=== PATIENT | female | born 1990 | race Two or more races ===

== ENCOUNTER → 2023-10-22 | Outpatient (CLI) | payer OTHER | END | disposition home or self-care (01) | LOC: PRENATAL 08:15 | PROVIDERS: ATTEND Obstetrics & Gynecology Maternal & Fetal Medicine | DX: O36.80X0 Pregnancy with inconclusive fetal viability, not applicable or unspecified (principal); Z36.82 Encounter for antenatal screening for nuchal translucency; Z36.9 Encounter for antenatal screening, unspecified; O34.40 Maternal care for other abnormalities of cervix, unspecified trimester; O34.30 Maternal care for cervical incompetence, unspecified trimester; Z3A.11 11 weeks gestation of pregnancy ==

== ENCOUNTER 2023-11-04 07:26 | Day surgery (SDC) | payer OTHER ==
[2023-10-26 09:34] LABS: HEMATOCRIT 39.9 % (36.0-45.00); HEMOGLOBIN 13.5 g/dL (12.0-15.00); MEAN CELL VOLUME 86.4 fL (80.00-100.00); MEAN CORPUSCULAR HEMOGLOBIN 29.2 pg (27.00-32.0); MEAN CORPUSCULAR HGB CONC 33.8 g/dl (32.0-36.0); PLATELET COUNT 207 K/uL (150-450); RED BLOOD COUNT 4.62 M/uL (4.00-6.00); RED CELL DISTRIBUTION WIDTH 14.2 % (11.5-14.5)
[2023-10-26 09:59] LABS: INR 0.98; PARTIAL THROMBOPLASTIN TIME 26.7 SECONDS (22.0-34.0); PROTHROMBIN TIME 10.3 SECONDS (9.0-11.5)
[~2023-11-04 07:26] MED LIST: PRENATABS RX T1 EACH PO
[2023-11-04] MEDS ORDERED: CEPHALEXIN500 MG PO (10:32)
== END 2023-11-04 17:15 | disposition home or self-care (01) ==
LOC: CIR.AMB 07:26
PROVIDERS: ATTEND Obstetrics & Gynecology Maternal & Fetal Medicine
DX: O34.31 Maternal care for cervical incompetence, first trimester (principal); Z3A.12 12 weeks gestation of pregnancy; Z20.822 Contact with and (suspected) exposure to COVID-19; Z88.6 Allergy status to analgesic agent; Z88.1 Allergy status to other antibiotic agents

== ENCOUNTER 2023-11-19 10:57 | Outpatient (CLI) | payer OTHER ==
[~2023-11-19 10:57] MED LIST changes: +CEPHALEXIN500 MG PO
== END 2023-11-19 10:58 | disposition home or self-care (01) ==
LOC: PRENATAL 10:57
PROVIDERS: ATTEND Obstetrics & Gynecology Maternal & Fetal Medicine
DX: O26.849 Uterine size-date discrepancy, unspecified trimester (principal); O34.40 Maternal care for other abnormalities of cervix, unspecified trimester; O34.30 Maternal care for cervical incompetence, unspecified trimester; Z3A.15 15 weeks gestation of pregnancy

== ENCOUNTER 2023-12-21 08:11 | Outpatient (CLI) | payer OTHER | END 2023-12-21 08:12 | disposition home or self-care (01) | LOC: PRENATAL 08:11 | PROVIDERS: ATTEND Obstetrics & Gynecology Maternal & Fetal Medicine | DX: O35.3XX0 Maternal care for (suspected) damage to fetus from viral disease in mother, not applicable or unspecified (principal); O44.00 Complete placenta previa NOS or without hemorrhage, unspecified trimester; O34.40 Maternal care for other abnormalities of cervix, unspecified trimester; O34.30 Maternal care for cervical incompetence, unspecified trimester; Z3A.20 20 weeks gestation of pregnancy ==

== ENCOUNTER 2024-02-15 08:12 | Outpatient (CLI) | payer OTHER | END 2024-02-15 08:14 | disposition home or self-care (01) | LOC: PRENATAL 08:12 | PROVIDERS: ATTEND Obstetrics & Gynecology Maternal & Fetal Medicine | DX: O26.849 Uterine size-date discrepancy, unspecified trimester (principal); O34.40 Maternal care for other abnormalities of cervix, unspecified trimester; O34.30 Maternal care for cervical incompetence, unspecified trimester; Z3A.28 28 weeks gestation of pregnancy ==

== ENCOUNTER 2025-10-09 10:39 | Outpatient (CLI) | payer OTHER | END 2025-10-09 10:40 | disposition home or self-care (01) | LOC: PRENATAL 10:39 | PROVIDERS: ATTEND Obstetrics & Gynecology Maternal & Fetal Medicine | DX: O36.80X0 Pregnancy with inconclusive fetal viability, not applicable or unspecified (principal); Z36.82 Encounter for antenatal screening for nuchal translucency; Z14.8 Genetic carrier of other disease; O34.41 Maternal care for other abnormalities of cervix, first trimester; O34.31 Maternal care for cervical incompetence, first trimester; O98.911 Unspecified maternal infectious and parasitic disease complicating pregnancy, first trimester; Z3A.14 14 weeks gestation of pregnancy ==

== ENCOUNTER 2025-10-30 08:00 | Day surgery (SDC) | payer OTHER ==
[2025-10-18 15:21] LABS: BASO % 0.3 % (0.1-1.2); EOS # 0.12 (0.04-0.54); EOS % 0.8 % (0.7-7.0); LYMPH # 2.54 (1.18-3.74); LYMPH % 16.0 % (19.3-53.1); MEAN PLATELET VOLUME 12.30 fl (9.4-12.4); MONO # 0.89 (0.24-0.82); MONO % 5.6 % (4.7-12.5); NEUT # 12.19 (1.56-6.13); NEUT % 76.7 % (34.0-71.1); RED CELL DISTRIBUTION WIDTH 13.7 % (11.6-14.4)
[2025-10-18 15:29] LABS: URINE APPEARANCE Clear; URINE BILIRRUBIN Negative (NEGATIVE); URINE BLOOD Negative; URINE COLOR Yellow; URINE GLUCOSE Negative (NEGATIVE); URINE LEUKOCYTE Trace; URINE NITRATE Negative; URINE PROTEIN Negative (NEGATIVE); URINE UROBILINOGEN 0.2 E.U./dl
[2025-10-18 15:32] LABS: URINE BACTERIA 33.1 uL (0.0-1933); URINE EPITHELIAL CELLS 3.1 uL (0.0-38.8)
[2025-10-18 15:33] LABS: URINE CAST 0.00 uL (0.0-1.40); URINE KETONE 40 (NEGATIVE); URINE RBC 1.8 uL (0.0-20.8); URINE WBC 1.2 uL (0.0-23.2)
[2025-10-18 15:54] LABS: INR 0.98
[2025-10-30] MEDS ORDERED: METRONIDAZOLE/SODIUM CHLORIDE 500 MG/100 ML PIGGYBACK IV ONE (09:15)
[2025-10-30] MEDS ORDERED: POVIDONE-IODINE 118 ML BOTT TOP ONE (09:15)
== END 2025-10-30 13:50 | disposition home or self-care (01) ==
LOC: CIR.AMB 08:00
PROVIDERS: ATTEND Obstetrics & Gynecology Maternal & Fetal Medicine
DX: O34.32 Maternal care for cervical incompetence, second trimester (principal); Z3A.17 17 weeks gestation of pregnancy